=== PATIENT | female | born 1980 | race American Indian/Alaskan Native ===

== ENCOUNTER 2019-11-16 16:37 | Emergency (ER) | payer MEDICAID ==
[2019-11-16] MEDS ORDERED: dexAMETHasone 4 MG/ML VIAL PO ONE (21:07)
[2019-11-16] MEDS ORDERED: PENICILLIN G BENZATHINE 1.2 MILLION UNIT/2 ML INJ IM STA (21:07)
[2019-11-16] MEDS ORDERED: SODIUM CHLORIDE 0.9% 1000 ML 1,000 ML IV ONE (21:07)
[2019-11-16] MEDS ORDERED: diphenhydrAMINE 50 MG/ML VIAL IV STA (21:07)
--- NOTE | 2019-11-16 21:09 | Emergency Department Report ---
ED ENT HPI - General Chief complaint: Dental/Oral Stated complaint: THROAT SWELLING Time Seen by Provider: 11/16/19 20:54 Source: patient Mode of arrival: Wheelchair Limitations: No Limitations - History of Present Illness Initial comments: 39-year-old -Irish female presents emergency department complaining of a few day history of progressively worsening sore throat associated with increased oral secretions odynophagia and dysphagia. Occasional feverish sensation but no hemoptysis no hematemesis no hematochezia. Was recently seen in the emergency department for a gastritis type patient was treated with an antibiotic and shortly after completion she began to to develop with a sore throat. She was advised to stay hydrated but will has been unable to do so due to the sore throat. MD complaint: sore throat -: Gradual Location: throat Severity: mild, moderate Quality: dull Consistency: constant Improves with: none Worsens with: none Associated Symptoms: sore throat - Related Data Previous Rx's Medication Instructions Recorded Last Taken Type RX: Hyoscyamine Subl [Levsin Sl 0.25 mg SL ONCE #20 tablet 10/25/19 Unknown Rx 0.125 TAB] RX: Pantoprazole [Protonix TAB] 40 mg PO ONCE #20 tablet 10/25/19 Unknown Rx RX: Chlorhexidine Mouthwash 15 ml MM BID #1 bottle 11/16/19 Unknown Rx [Peridex] RX: Lidocaine Viscous 2% 5 ml MM Q3H PRN #120 udc 11/16/19 Unknown Rx Allergies Allergy/AdvReac Type Severity Reaction Status Date / Time No Known Allergies Allergy Verified 10/25/19 05:52 ED Dental HPI - General Chief complaint: Dental/Oral Stated complaint: THROAT SWELLING Time Seen by Provider: 11/16/19 20:54 Source: patient Mode of arrival: Wheelchair Limitations: No Limitations - Related Data Previous Rx's Medication Instructions Recorded Last Taken Type RX: Hyoscyamine Subl [Levsin Sl 0.25 mg SL ONCE #20 tablet 10/25/19 Unknown Rx 0.125 TAB] RX: Pantoprazole [Protonix TAB] 40 mg PO ONCE #20 tablet 10/25/19 Unknown Rx RX: Chlorhexidine Mouthwash 15 ml MM BID #1 bottle 11/16/19 Unknown Rx [Peridex] RX: Lidocaine Viscous 2% 5 ml MM Q3H PRN #120 udc 11/16/19 Unknown Rx Allergies Allergy/AdvReac Type Severity Reaction Status Date / Time No Known Allergies Allergy Verified 10/25/19 05:52 ED Review of Systems ROS: Stated complaint: THROAT SWELLING Other details as noted in HPI Comment: All other systems reviewed and negative ED Past Medical Hx - Past Medical History Previous Medical History?: No - Surgical History Past Surgical History?: Yes Additional Surgical History: Hysterectomy - Social History Smoking Status: Never Smoker Substance Use Type: None - Medications Home Medications: Home Medications Medication Instructions Recorded Confirmed Last Taken Type RX: Hyoscyamine Subl [Levsin Sl 0.25 mg SL ONCE #20 tablet 10/25/19 Unknown Rx 0.125 TAB] RX: Pantoprazole [Protonix TAB] 40 mg PO ONCE #20 tablet 10/25/19 Unknown Rx RX: Chlorhexidine Mouthwash 15 ml MM BID #1 bottle 11/16/19 Unknown Rx [Peridex] RX: Lidocaine Viscous 2% 5 ml MM Q3H PRN #120 udc 11/16/19 Unknown Rx ED Physical Exam - General Limitations: No Limitations General appearance: alert, in no apparent distress - Head Head exam: Present: atraumatic, normocephalic - Eye Eye exam: Present: normal appearance, PERRL, EOMI Pupils: Present: normal accommodation - ENT ENT exam: Present: mucous membranes moist, TM's normal bilaterally, other (Pharynx red swollen with some bilateral swelling scant exudate. No peritonsillar abscess is noted. Uvula is normal size.) - Neck Neck exam: Present: normal inspection, full ROM (s), lymphadenopathy - Respiratory Respiratory exam: Present: normal lung sounds bilaterally. Absent: respiratory distress - Cardiovascular Cardiovascular Exam: Present: regular rate, normal rhythm. Absent: systolic murmur, diastolic murmur, rubs, gallop - GI/Abdominal GI/Abdominal exam: Present: soft, normal bowel sounds - Extremities Exam Extremities exam: Present: normal inspection - Back Exam Back exam: Present: normal inspection - Neurological Exam Neurological exam: Present: alert, oriented X3 - Psychiatric Psychiatric exam: Present: normal affect, normal mood - Skin Skin exam: Present: warm, dry, intact, normal color. Absent: rash ED Course Vital Signs 11/16/19 16:52 Temperature 97.8 F Pulse Rate 116 H Respiratory 20 Rate Blood Pressure 115/86 [Left] O2 Sat by Pulse 100 Oximetry ED Medical Decision Making - Medical Decision Making 39-year-old female with sore throat swelling to the posterior pharynx suggestive of pharyngitis no evidence of any tonsillar abscess is noted. No drooling still able to speak in full sentences. She was treated accordingly with IV fluids steroids and analgesic medication along with antibiotics she was given topical analgesics for home been advised to follow-up for reevaluation in 24 to 48 hours. Also been instructed on when to return to the emergency department and discharge handout was provided Critical care attestation.: If time is entered above; I have spent that time in minutes in the direct care of this critically ill patient, excluding procedure time. ED Disposition Clinical Impression: Pharyngitis Disposition: DC- TO HOME OR SELFCARE Is pt being admited?: No Does the pt Need Aspirin: No Condition: Stable Instructions: Pharyngitis (ED) Prescriptions: RX: Lidocaine Viscous 2% 5 ml MM Q3H PRN #120 udc PRN Reason: Pain, Moderate (4-6) RX: Chlorhexidine Mouthwash [Peridex] 15 ml MM BID #1 bottle Referrals: PRIMARY CARE, [Primary Care Provider] - 3-5 Days [facility] [Provider Group] - 3-5 Days
[2019-11-16] MEDS ORDERED: cloNIDine 0.1 MG TAB PO ONE (22:52)
[2019-11-16 23:38] VITALS: BP 169/103
== END 2019-11-16 23:38 | disposition home or self-care (01) ==
LOC: ED 16:37
DX: J02.9 Acute pharyngitis, unspecified (principal); Z90.710 Acquired absence of both cervix and uterus; Z79.899 Other long term (current) drug therapy
CPT/HCPCS: 96372; 96374; 99283; J0561; J1100; J1200; J7030